=== PATIENT | female | born 1940 | race Caucasian/White ===

== ENCOUNTER 2024-06-06 12:23 | Emergency (ER) | payer MEDICARE, BC, SELFPAY ==
--- NOTE | ~2024-06-06 | XR_ITS ---
Clinical Indication: Cough PA and lateral views of the chest: Comparison: None Findings: The lungs are clear, without evidence of focal consolidation or pleural effusion. Cardiome diastinal silhouette is within normal limits. Bones and soft tissues are unremarkable. Impression: Normal chest. Reviewed, dictated and finalized at location . Impression: Normal chest.
--- OUTSIDE RECORDS SUMMARY | 2024-06-06 12:24 | XMS_ITS | Clinical Summary ---
Author Organization [facility] Address [facility] [place] [address] Care Team Providers Care Ceo And Co Founder Name Role Phone Marleni Verdugo Primary Care Provider [phone] Allergies No known active allergies Medications cetirizine 10 MG tablet Take 10 mg by mouth daily. Active omega-3 fatty acid 1000 MG capsule Take by mouth daily. Active pravastatin 40 MG tablet Take 40 mg by mouth nightly at bedtime. Active B complex-C Cap capsule Take 1 capsule by mouth daily. Active aspirin 81 MG chewable tablet Chew 81 mg by mouth daily. Active Active Problems Problem Noted Date Diagnosed Date Diverticulitis 06/18/2018 TIA (transient ischemic attack) 04/03/2018 Immunizations Name Administration Dates Next Due MODERNA COVID-19 (12+) MRNA, LNP-S, PF, 100 MCG/ 0.5 ML DOSE 06/09/2020,05/12/2020 Family History Medical History Relation Comments Cancer Father Prostate Heart Disease Father Relation Status Comments Father Social History Tobacco Use Types Packs/Day Years Used Date Smoking Tobacco: Never Smokeless Tobacco: Never Alcohol Use Standard Drinks/Week Comments Yes 0 (1 standard drink = 0.6 oz pur e alcohol) rarely, socially Comments No Sex and Gender Information Value Date Recorded Sex Assigned at Not on file Legal Sex Female 8:08 PM CDT Gender Identity Not on file Sexual Orientation Not on file Last Filed Vital Signs Vital Sign Reading Time Taken Comments Blood Pressure 174/88 11/15/2021 10:12 AM CDT Pulse 82 11/15/2021 10:12 AM CDT Temperature 35.7 C (96.2 F) 11/15/2021 8:54 AM CDT Respiratory Rate 16 11/15/2021 8:54 AM CDT Oxygen Saturation 98% 11/15/2021 10:12 AM CDT Inhaled Oxygen Concentration - - Weight 61.2 kg (135 lb) 11/15/2021 8:54 AM CDT Height 165.1 cm (5' 5 ) 11/15/2021 8:54 AM CDT Body Mass Index 22.47 11/15/2021 8:54 AM CDT Plan of Treatment Health Maintenance Due Date Last Done Comments ASCVD Statin 1940 DTaP, Tdap and Td Vaccines ( 1 - Tdap) 1961 Annual Medicare Wellness Visit 2007 Pneumococcal Vaccine: 65+ Years (1 of 1 - PCV) 2007 RSV Immunization or 60+ Years (1 - 1-dose 75+ series) 2017 ASCVD LDL 04/04/2019 04/04/2018 COVID-19 Vaccine (3 - 2023-2 5 season) 2023 06/09/2020, 05/12/2020 Influenza Adult (#1) 2023 Zoster Vaccines Completed 02/23/2020, 12/21/2019 Dexa Scan (General) Completed 06/04/2023 Meningococcal B Vaccine Aged Out No l onger eligible based on patient's age to complete this topic Meningococcal Vaccine Aged Out No yanelis roseann eligible based on patient's age to complete this topic RSV Immunizations Under 20 Months Aged Out No longer eligible b ased on patient's age to complete this topic Procedures Procedure Name Priority Date/Time Associated Diagnosis Comments BONE DENSITY/DEXA Routine 06/04/2023 1:3 0 PM IUSS ACOUSTIC ANALYST Ovarian failure LIPID PANEL Routine 04/04/2018 5:15 AM IUSS ACOUSTIC ANALYST from Last 3 Months or Most Recently Relevant to Health Maintenance Results * BONE DENSITY/DEXA (06/04/2023 1:30 PM IUSS ACOUSTIC ANALYST) Anatomical Region Laterality Modality Bone Bone Density 06/04/2023 10:2 3 PM IUSS ACOUSTIC ANALYST Impressions 06/04/2023 10:24 PM IUSS ACOUSTIC ANALYST Impression: Low bone mass (osteopenia). Ordered By: MARLENI VERDUGO Interpreted By: Tomas Sinclair DO, 06/04/2023 10:23 PM Narrative 06/04/2023 10:24 PM IUSS ACOUSTIC ANALYST Examination: DEXA Bone densitometry Clinical history: Postmenopausal. Osteoporosis screening. Technique: DEXA bone mineral density evaluation was performed in the AP projection over the lumbar spine and over both hips in the AP projection utilizing standard imaging techniques. COMPARISON: None. Assessment: The BMD measured at the AP spine L1-L4 is 1.174 g/cm2 with a T-score of 1.2 and a Z-Score of 3.9. The BMD of the total left femur is 0.970 g/cm2, the femoral neck measures 0.711 g/cm2, with a T-score of -1.2 and a Z-Score of 1.1. The BMD of the total right femur is 0.965 g/cm2, the femoral neck measures 0.904 g/cm2, with a T-score of 0.2 and a Z-Score of 2.3. Based upon the above measurements, the patient has low bone mass. Per FRAX, the patient's 10 year risk of major osteoporotic fracture is 13%. The 10 year risk of hip fracture is 2.8%. Based on these results, a followup exam is recommended in 2 years or sooner if clinically indicated. Procedure Note Tomas Sinclair DO - 06/04/2023 Examination: DEXA Bone densitometry Clinical history: Postmenopausal. Osteoporosis screening. Technique: DEXA bone mineral density evaluation was performed in the APprojection over the lumbar spine and over both hips in the AP projectionutilizing standard imaging techniques. COMPARISON: None. Assessment: The BMD measured at the AP spine L1-L4 is 1.174 g/cm2 with a T-score of1.2 and a Z-Score of 3.9. The BMD of the total left femur is 0.970 g/cm2, the femoral neck measures0.711 g/cm2, with a T-score of -1.2 and a Z-Score of 1.1. The BMD of the total right femur is 0.965 g/cm2, the femoral neck measures0.904 g/cm2, with a T-score of 0.2 and a Z-Score of 2.3. Based upon the above measurements, the patient has low bone mass. Per FRAX, the patient's 10 year risk of major osteoporotic fracture is13%. The 10 year risk of hip fracture is 2.8%. Based on these results, a followup exam is recommended in 2 years orsooner if clinically indicated. Impression: Low bone mass (osteopenia). Ordered By: MARLENI VERDUGO Interpreted By: Tomas Sinclair DO, 06/04/2023 10:23 PM us Marleni ADAM DEXA Final Result * (ABNORMAL) LIPID PANEL (04/04/2018 5:15 AM IUSS ACOUSTIC ANALYST) CHOLESTEROL 173 <200 MG/DL 04/04/2018 6:18 AM [facility] TRIGLYCERIDES 270(H) <150 MG/DL 04/04/2018 6:18 AM [facility] HDL 40(L) >40.0 MG/DL 04/04/2018 6:18 AM [facility] LDL (CALCULATED) 79 <100 MG/DL 04/04/2018 6:18 AM [facility] NON HDL CHOLESTEROL 133(H) <130 MG/DL 04/04/2018 6:18 AM [facility] CHOL/HDL RATIO 4.3 0.0 - 4.5 04/04/2018 6:18 AM [facility] VLDL CALCULATION 54 5 - 55 MG/DL 04/04/2018 6:18 AM [facility] LIPID INTERPRETATION 04/04/2018 6:18 AM [facility] Comment: NIH CONCENSUS REPORT RECOMMENDATIONS: ADULT CHILD LOW RISK: CHOLESTEROL <200 <170 TRIGLYCERIDE <150 --- HDL >=60 --- LDL <100 <110 BORDERLINE: CHOLESTEROL 200-239 170-199 TRIGLYCERIDE 150-199 --- HDL 40-59 --- LDL 100-159 110-129 HIGH RISK: CHOLESTEROL >=240 >=200 TRIGLYCERIDE >=200 --- HDL <40 --- LDL >=160 >=130 04/04/2018 5:15 AM IUSS ACOUSTIC ANALYST Joanna Vick MD LABORATORY Final Result [facility] [address] [place] [address], from Last 3 Months or Most Recently Relevant to Health Maintenance Insurance MEDICARE [facility] MEDICARE [facility] Advance Directives Documents on File Type Date Recorded Patient Hand Shaper Expl anation Advance Directives and Living Will 06/09/2018 12:00 AM POWER OF RN MED SURG FO R HEALTH CARE Advance Directives and Living Will 04/03/2018 12:00 AM POWER OF RN MED SURG FO R HEALTH CARE Advance Directives and Living Will 10/08/2017 12:00 AM POWER OF RN MED SURG FO R HEALTH CARE Advance Directives and Living Will 10/08/2017 12:00 AM POWER OF RN MED SURG FO R HEALTH CARE Advance Directives and Living Will 09/04/2017 12:00 AM POWER OF RN MED SURG FO R HEALTH CARE Advance Directives and Living Will 09/04/2017 12:00 AM POWER OF RN MED SURG FO R HEALTH CARE * Full Code (Latest Code Status on File) Date Activated Date Inactivated Comments 04/03/2018 4:36 PM 04/04/2018 4:25 PM Care Teams Ceo And Co Founder Relationship Specialty Start Date End Date Marleni Verdugo PA PCP - General PHYSICIAN PIPELINE DISPATCHER 11/15/21
--- OUTSIDE RECORDS SUMMARY | 2024-06-06 12:24 | XMS_ITS | Clinical Summary ---
Author Organization [facility] [address] [facility] [facility] [address] Address [address] [place] [id number] Care Team Providers Care Escrow Closer Name Role Phone Kyree Allison MD Primary Care Provider [phone] Allergies No known active allergies Medications aspirin 81 mg enteric coated tablet Take 81 mg by mouth daily Active vitamin B complex capsule Take 1 capsule by mouth daily Active cetirizine (ZyrTEC) 10 mg tablet Take 10 mg by mouth daily Active pravastatin (PRAVACHOL) 40 mg tablet Take 40 mg by mouth nightly Active omega-3 fatty acids-fish oil 300-1,000 mg capsule Take 2 g by mouth daily Active Active Problems Problem Noted Date Diagnosed Date Osteoarthritis 07/20/2018 Diverticulitis 06/30/2018 Overview (06/30/2018): Added automatically from request for surgery [id number] Surgical History Surgery Date Site/Laterality Comments COLONOSCOPY Medical History Medical History Date Comments Osteoarthritis 07/20/2018 Diverticulitis of colon Social History Tobacco Use Types Packs/Day Years Used Date Smoking Tobacco: Never Smokeless Tobacco: Never Personal Safety Answer Date Recorded Getting School Help Needed Not on file 06/14 Comments No Sex and Gender Information Value Date Recorded Sex Assigned at Not on file Legal Sex Female 1:51 PM CDT Gender Identity Not on file Sexual Orientation Not on file Obstetrics History Last Filed Vital Signs Vital Sign Reading Time Taken Comments Blood Pressure 163/83 08/18/2018 3:02 PM CDT Pulse 104 07/31/2018 1:11 PM CDT Temperature 36.7 C (98 F) 07/31/2018 1:11 PM CDT Respiratory Rate 18 07/31/2018 1:11 PM CDT Oxygen Saturation 100% 07/31/2018 1:11 PM CDT Inhaled Oxygen Concentration - - Weight 67 kg (147 lb 11.3 oz) 08/18/2018 3:02 PM CDT Height 165.1 cm (5' 5 ) 08/18/2018 3:02 PM CDT Body Mass Index 24.58 08/18/2018 3:02 PM CDT Plan of Treatment Not on file Insurance MEDICARE [facility] Advance Directives For more information, please contact: [phone] Documents on File Type Date Recorded Patient Wood Form Builder Expl anation ADVANCE DIRECTIVE 07/20/2018 10:44 AM * Full Code (Latest Code Status on File) Date Activated Date Inactivated Comments 07/29/2018 3:50 PM 07/31/2018 7:25 PM Care Teams Escrow Closer Relationship Specialty Start Date End Date Kyree Allison MD [address] [place] [id number] PCP - General Internal Medicine 06/12/18
--- OUTSIDE RECORDS SUMMARY | 2024-06-06 12:24 | XMS_ITS | Referral Summary ---
Author Organization [facility] [address] Address [address] [place] [id number] Care Team Providers Care Server Systems Administrator Name Role Phone Kyree Allison MD Primary Care Provider [phone] Allergies No known active allergies Medications aspirin [...] (06/30/2018): Added automatically from request for surgery [id number] Social History Tobacco Use Types Packs/Day Years [...] of Treatment Not on file Insurance MEDICARE [facility] ACC[facility] Advance Directives For more information, please contact: [phone] Documents on File Type Date Recorded Patient Linux Security Administrator Expl anation ADVANCE DIRECTIVE 07/20/2018 10:44 AM * Full Code (Latest Code Status on File) Date Activated Date Inactivated Comments 07/29/2018 3:50 PM 07/31/2018 7:25 PM Care Teams Server Systems Administrator Relationship Specialty Start Date End Date Kyree Allison MD [address] [place] [id number] PCP - General Internal Medicine 06/12/18
[2024-06-06 12:34] VITALS: BP 152/81; PULSE 120; RESP 16; TEMP 37.3; O2SAT 95
--- NOTE | 2024-06-06 12:50 | ED_ITS ---
HPI - URI/Sore Throat General Chief Complaint: Upper Respiratory Infection Stated Complaint: COUGH Time Seen by Provider: 06/06/24 12:26 Source: patient, RN notes reviewed and old records reviewed Mode of arrival: ambulatory Limitations: no limitations History of Present Illness HPI Narrative: patient presents with complaints of cough for 5 days. She reports that she saw her PCP for this problem on Friday, got a steroid shot in office, but is now feeling worse instead of better. She reports that she has cough that is becoming increasingly productive and is having some wheezing. She is not any obvious distress, including respiratory distress. She voices no other concerns or complaints at this time. Related Data Home Medications ?Medication ?Instructions ?Recorded ?Confirmed ?Last Taken ?Type aspirin 81 mg tablet,delayed 81 mg PO DAILY 11/26/21 05/10/24 Unknown History release (Adult Aspirin Regimen) cetirizine 10 mg tablet (Zyrtec) 10 mg PO DAILY PRN 11/26/21 05/10/24 Unknown History omega 1-glr-udk-fish oil 1,000 mg 1 cap PO DAILY 11/26/21 05/10/24 Unknown History (120 mg-180 mg) capsule (Fish Oil) vitamin B complex (B 1 tablet PO DAILY 11/26/21 05/10/24 Unknown History Complex-Vitamin B12 tablet) calcium BYMOUTH 06/09/23 05/10/24 Unknown History Allergies Allergy/AdvReac Type Severity Reaction Status Date / Time duloxetine (From Cymbalta) AdvReac Intermediate Gastrointestinal Verified 06/06/24 12:33 Upset Review of Systems Review of Systems: All systems reviewed & are unremarkable except as noted in HPI and below Constitutional: Constitutional: Reports no additional constitutional complaints ENT: Reports system reviewed and no additional complaints, except as documented Cardiovascular: Cardiovascular: Reports no additional cardiovascular complaints Respiratory: Respiratory: Reports no additional respiratory complaints, Reports chest congestion, Reports cough and Reports wheezing Gastrointestinal: Gastrointestinal: Reports no additional gastrointestinal complaints PMFSH Past Medical History Medical History (Updated 06/06/24 @ 13:09 by Swetha Cheng APRN) Atherosclerosis aorta noted on CT 2019 Bilateral primary osteoarthritis of hip Lumbago Transient global amnesia 2019 Dyslipidemia Vitamin D deficiency Transaminitis elevated ALT, initially noted 2018. CT 2019 - mild fatty infiltration Need for vaccination Trigeminal nerve disorder, unspecified Family History Family History Father Malignant neoplasm of prostate Diabetes mellitus Heart disease Social History Social History Smoking status: Never smoker Alcohol intake: current Drinks per week: 1 Substance use: never Lack of Transportation: YES Lack of Food: Never True Concerned About Future Housing: No Difficulty Paying Gas/Electric Bills: No Difficulty Paying for Meds: No Currently Unemployed: No Difficulty w/ Childcare or Family Care: No Living arrangements: alone Occupation/Education: retired Gender identity (if verbalized by the patient): Female Spiritual care concerns: No Comments At the time of my signature, I reviewed and agree with the nursing past medical, surgical, social, and family history. There is no relevant family history pertinent to the patient complaint. Exam Const: General: cooperative, no acute distress, alert and awake Orientation/consciousness: oriented to person, oriented to place and oriented to time HENMT: Head: normal to inspection Resp: Effort & Inspection: normal respiratory effort and able to speak in complete sentences Auscultation: clear to auscultation bilaterally, no crackles, no rales, no rhonchi and wheezes scattered wheezes (mild) Cardio: Palpation: normal PMI Rate: regular rate Rhythm: regular rhythm Heart sounds: S1 normal heart sound present and S2 normal heart sound present Neuro: General: oriented to person, oriented to place and oriented to time Cranial nerves: Yes CN's II-XII intact bilaterally Psych: Appearance: grossly normal Thought process: Normal thought process present Insight: Good insight present (Psych) Judgement: Good judgement p resent (Psych) Course Course Level of Care: Express Care Visit Vital Signs Vital signs: Vital Signs Temperature 99.1 F 06/06/24 12:34 Pulse Rate 120 H 06/06/24 12:34 Respiratory Rate 16 06/06/24 12:34 Blood Pressure 152/81 H 06/06/24 12:34 Pulse Oximetry 95 06/06/24 12:34 Oxygen Delivery Room Air 06/06/24 12:34 Temperature 99.1 F 06/06/24 12:34 Pulse Rate 120 H 06/06/24 12:34 Respiratory Rate 16 06/06/24 12:34 Blood Pressure 152/81 H 06/06/24 12:34 Pulse Oximetry 95 06/06/24 12:34 Oxygen Delivery Room Air 06/06/24 12:34 Reviewed MDM - URI/Sore Throat MDM Narrative Medical decision making narrative: Negative chest x-ray. Reassuring physical exam with exception of mild scattered wheezes. treat as bronchitis. steroid burst, bronchodilator. Azithromycin for added anti-inflammatory properties, especially given patient's advanced age Discharge instructions reviewed with patient, as well as provided in writing per nursing staff. The instructions also include specific and strict return/GO TO THE ER as well as f/u information. All questions have been answered, and the patient deny any further questions with discharge and discharge plan. Some parts of this dictation were generated by voice recognition software and may contain typographical and/or grammatical inaccuracies. Differential Diagnosis Differential diagnosis: Likely upper respiratory infection, otitis media and viral infection Medical Records Attestation: I reviewed the patient's medical records. Imaging Data Attestation: I personally reviewed and interpreted this imaging study as follows: My impression: negative chest Radiologist's impression: [place] [address] XRay Report Signed Patient: Kendal Negrete : 1940 MR#: [id number] Age: 84 Acct:[id number] Loc: [facility] ADM Date: 06/06/24Attending Dr: Ordering Physician: Swetha Cheng FNP Date of Service: 06/06/24 Procedure(s): XR chest 2V Accession Number(s): [id number] cc: Swetha Cheng FNP; Marleni Verdugo PA-C~ Clinical Indication: Cough PA and lateral views of the chest: Comparison: None Findings: The lungs are clear, without evidence of focal consolidation or pleural effusion. Cardiomediastinal silhouette is within normal limits. Bones and soft tissues are unremarkable. Impression: Normal chest. Reviewed, dictated and finalized at [facility]. Please be advised this is a medical document. It is intended for [id number] communication. It is written in medical language and may contain unfamiliar abbreviations or verbiage. Medical documents are intended to carry relevant information, facts as evident, and the clinical opinion of the practitioner at the time of the encounter. This report may have been done utilizing a voice recognition system. Attempts have been made to correct errors. However, there may be uncorrected grammatical, spelling, and recognition errors present. The file time of this note does not necessarily represent the time of service. Dictated By: Wilian Falcon MD 06/06/24 1303 Signed By: <Electronically signed by Wilian Falcon MD in OV> Discharge Plan Discharge Clinical Impression: Bronchitis Patient Disposition: Home, Self-Care Condition: Stable Instructions: Antibiotic Form, Acute Bronchitis (ED) Additional Instructions: take medication as prescribed. Follow with primary care provider. Emergency department for new or worse symptoms Patient Language: [place] Prescriptions: New azithromycin 250 mg tablet See Rx Instructions .ROUTE .COMPLEX Qty: 6 0RF Rx Instructions: For 250 mg dose pack: take 500 mg today (day 1), then 250 mg for 4 days (days 2-5) prednisone 50 mg tablet 50 mg PO DAILY Qty: 5 0RF albuterol sulfate [Ventolin HFA] 90 mcg/actuation HFA aerosol inhaler 2 puff inhalation QID PRN (Reason: shortness of breath or wheezing) Qty: 8.5 0RF No Action cetirizine [Zyrtec] 10 mg tablet 10 mg PO DAILY PRN vitamin B complex [B Complex-Vitamin B12] Tablet 1 tablet PO DAILY omega 8-gjl-kyt-fish oil [Fish Oil] 1,000 mg (120 mg-180 mg) capsule 1 cap PO DAILY aspirin [Adult Aspirin Regimen] 81 mg tablet,delayed release (DR/EC) 81 mg PO DAILY calcium BYMOUTH Rx Instructions: Take 600mg dailt OTC omega-3 acid ethyl esters [Lovaza] 1 gram capsule 1 cap PO BID Qty: 60 0RF lisinopril 20 mg tablet 20 mg PO DAILY Qty: 90 1RF pravastatin 40 mg tablet 40 mg PO QHS Qty: 90 1RF cholecalciferol (vitamin D3) 125 mcg (5,000 unit) capsule 5,000 unit PO DAILY Qty: 90 1RF Rx Instructions: rx corrected 05/26/24 Follow-up/Referrals: Marleni Verdugo PA-C [Primary Care Provider] - 1 Week Time of Disposition: 13:10
== END 2024-06-06 13:11 | disposition home or self-care (01) ==
PROVIDERS: Emergency Provider Nurse Practitioner Family; PCP Physician Assistant Medical
DX: J40 Bronchitis, not specified as acute or chronic (principal); I70.0 Atherosclerosis of aorta; M16.0 Bilateral primary osteoarthritis of hip; E78.5 Hyperlipidemia, unspecified
CPT/HCPCS: 71046; 99213; G0463

== ENCOUNTER 2024-10-06 08:45 | Outpatient (RCR) | payer MEDICARE, BC, SELFPAY ==
--- NOTE | 2024-09-08 16:21 | PTOPEVAL1 ---
Assessment and note entered by Alessia Naranjo, PT Evaluation Information Assessment Status Evaluation Diagnosis Cervical radiculopathy ICD-10 Condition Codes (PT) Cervicalgia M54.2,Radiculopathy, cervical M54.13, Weakness R53.1 Other ICD-10 Condition Codes ( abnormal posture, stiffness cindi shoulders PT) Onset Chronic Subjective Information Reports when aches somewhere is told arthritis. Hurts left side more than right, and is tender, and goes up into head mostly the left but sometimes the right. Increased intensity last fall. Has to use a neck pillow for comfort. The last two months will get dizzy with getting up and down in bed, turning over in bed. Has been provided medication for dizziness but didn't seem to help. When gets bad fels like can't hold her head up. Putting her chair back and using her neck pillow makes it feel better. Pt reports doesn't stop doing her acitivities but keeps pushing through Laying on left side feels better because laying on the right side pulls on the left Pt reports silver sneakers at local rec center, has been advised to stop using weights for this. States moves arms and jumps around. Difficulty driving due to turning left difficulty Reported Pain Level Pain Score 4: Self Report Assessment PT Clinical Summary Pt presents with complaints of chronic neck pain that has worsened in the past year. Imaging shows significant loss of disc height, decreased cervical lordosis, and arthritic changes. Pt also demonstrates abnormal postures, decreased ROM of cervical spine and bilat shoulders L>R, (+) tone and tenderness bilat upper trapezius L>R. Pt will greatly benefit from physical therapy in order to address deficits, and improve pain and thus quality of life. Plan of Care Interventions Electrical Stimulation,Hot Pack/Cold Pack,Manual Therapy,Mechanical Traction,Neuro Re-education, Patient/Caregiver Education,Therapeutic Activities ,Therapeutic Exercise,Self-Care/Home Management, Ultrasound,Other Other Interventions dry needling PT Services Indicated Yes Treatment Frequency and 1-2x weekly x 20 visits Duration These treatments will address the objective and functional deficits as defined above. The patient will be advanced safely and appropriately in order for the patient to progress towards his/her prior level of function. Additional exercises will be introduced and as well as a comprehensive home exercise program upon discharge, if needed, ?to ensure carryover of functional gains achieved in the clinic. This treatment plan has been reviewed and agreement upon by the patient.
--- NOTE | 2024-09-08 16:21 | OPREHPOC ---
Outpatient Therapy Plan of Care This is a Multidisciplinary Plan of Care that may contain components documented by all disciplines (PT, OT, and ST.) PT Goal 1 Goal / Goal Update Pt will be independent in HEP Pt will verbalize understanding of diagnosis and prognosis Target Visit 10 PT Problem 2 PT Problem #2 Pain PT Goal 1 Goal / Goal Update Pt will report lowest pain rating at 0/10 to show improvement in overall discomfort Target Visit 10 PT Goal 2 Goal / Goal Update Pt will report greatest pain level at 3/10 or less to improve ADLs and activities Target Visit 20 PT Problem 3 PT Problem #3 Impaired Range of Motion PT Goal 1 Goal / Goal Update Pt will demonstrate improved range of motion flexion by 10 degrees with minimal discomfort Target Visit 10 PT Goal 2 Goal / Goal Update Pt will demonstrate left rotation of 45 degrees or greater for improved functional use with driving Target Visit 20 PT Problem 4 PT Problem #4 Impaired Range of Motion PT Goal 1 Goal / Goal Update Pt will demonstrate LUE shoulder ROM equal to RUE to offload upper trapezius muscles Target Visit 20 PT Problem 5 PT Problem #5 Impaired Endurance PT Goal 1 Goal / Goal Update Pt will demonstrate ability to adopt and maintain appropriate scapular posture for 5 minutes at a time independently to promote appropriate kinematics and reduce muscle strain. Target Visit 20
--- NOTE | 2024-10-06 19:17 | PTOPPROG ---
Assessment and note entered by Alessia Naranjo, PT Evaluation Information Assessment Status Progress Diagnosis Cervical radiculopathy ICD-10 Condition Codes (PT) Cervicalgia M54.2,Radiculopathy, cervical M54.13, Weakness R53.1 Other ICD-10 Condition Codes ( abnormal posture, stiffness cindi shoulders PT) Onset Chronic Subjective Information Pt reports is 99% improved overall. Pain going up into head has resolved. Feeling of not being able to hold her head up is resolved Wears neck pillow to read but doesn't feel like needs it anymore, just wears it out of habit Assessment PT Clinical Summary Pt has attended therapy consistently 10 visits for her neck pain. She reports feeling 99% improved overall, states can now get into bed and sleep easily without pain, reports greatest pain level reduced from 10/10 to 6/10 and reports this is more rare and usually at the end of the day when she has been very active. She also reports no pain with turning her head while driving, just a stretching. She has not returned to her fitness classes yet but has been educated on modifications to improve outcomes with returning to her classes . She has met most of her goals though not all retirement goals such as reporting highest pain level at 3/10 versus current 6/10. She is independent in her HEP and feels confident in this however is worried that ceasing therapy her pain will return. Thus we are keeping her plan open for three weeks to allow her to return to all activities and assess her progress. Should she require continued therapy we can resume at that time. If she does not return in that timeframe, we will discharge for completion of her plan of care . Plan of Care Interventions Electrical Stimulation,Hot Pack/Cold Pack,Manual Therapy,Mechanical Traction,Neuro Re-education, Patient/Caregiver Education,Therapeutic Activities ,Therapeutic Exercise,Self-Care/Home Management, Ultrasound,Other Other Interventions dry needling PT Services Indicated Yes Treatment Frequency and Remainder of 1-2 visits weekly x 10 visits from Duration initial plan These treatments will address the objective and functional deficits as defined above. The patient will be advanced safely and appropriately in order for the patient to progress towards his/her prior level of function. Additional exercises will be introduced and as well as a comprehensive home exercise program upon discharge, if needed, ?to ensure carryover of functional gains achieved in the clinic. This treatment plan has been reviewed and agreement upon by the patient.
--- NOTE | 2024-11-02 08:37 | PTOPDC ---
Assessment and note entered by Alessia Naranjo, PT Evaluation Information Assessment Status Discharge Diagnosis Cervical radiculopathy ICD-10 Condition Codes (PT) Cervicalgia M54.2,Radiculopathy, cervical M54.13, Weakness R53.1 Other ICD-10 Condition Codes ( abnormal posture, stiffness cindi shoulders PT) Onset Chronic Subjective Information Pt reports is 99% improved overall. Pain going up into head has resolved. Feeling of not being abole to hold her head up is resolved Wears neck pillow to read but doesn't feel like needs it anymore, just wears it out of habit Assessment PT Clinical Summary Pt has attended therapy consistently 10 visits for her neck pain. She reports feeling 99% improved overall, states can now get into bed and sleep easily without pain, reports greatest pain level reduced from 10/10 to 6/10 and reports this is more rare and usually at the end of the day when she has been very active. She also reports no pain with turning her head while driving, just a stretching. She has not returned to her fitness classes yet but has been educated on modifications to improve outcomes with returning to her classes . 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 She is independent in her HEP and feels confident in this however is worried that ceasing therapy her pain will return. Thus we are keeping her plan open for three weeks to allow her to return to all activities and assess her progress. Should she require continued therapy we can resume at that time. If she does not return in that timeframe, we will discharge for completion of her plan of care . Plan of Care PT Services Indicated no
== END 2024-11-02 08:44 | disposition home or self-care (01) ==
LOC: ANHHIPT 08:45
PROVIDERS: PCP Physician Assistant Medical; Visit Provider Physician Assistant Medical
DX: M54.12 Radiculopathy, cervical region (principal)
CPT/HCPCS: 97012; 97014; 97110; 97140; 97161; 97530; 97750; G0283